=== PATIENT | male | born 1995 | race Caucasian/White ===

== ENCOUNTER 2022-08-27 21:18 | Emergency (ER) | payer BC, OTHER ==
[2022-08-27 21:33] VITALS: BP 132/88; PULSE 88; RESP 16; TEMP 98.4; BMI 26.9
== END 2022-08-27 22:12 | disposition home or self-care (01) ==
LOC: FER 21:18
DX: R41.9 Unspecified symptoms and signs involving cognitive functions and awareness (principal)
CPT/HCPCS: 99281-25